=== PATIENT | female | born 1955 | race Caucasian/White ===

== ENCOUNTER 2017-12-28 11:34 | Outpatient (CLI) | payer BC, SELFPAY ==
[2017-12-28 13:19] LABS: Cholesterol 303 mg/dL (50-200); Glucose 97 mg/dL (70-100); HDL Cholesterol 58 mg/dL (40-60); LDL CHOLESTEROL 218 mg/dL (<100); TSH (W/Ref FT4) 1.98 uIU/mL (0.358-3.74); Triglyceride 97 mg/dL (30-150)
[2018-01-02 16:11] LABS: Antimullerian Hormone <0.1 ng/mL (<1.0)
== END 2017-12-28 11:54 ==
PROVIDERS: PCP Emergency Medicine; Visit Provider Nurse Practitioner Women's Health
DX: Z13.1 Encounter for screening for diabetes mellitus (principal); Z13.220 Encounter for screening for lipoid disorders; N95.1 Menopausal and female climacteric states; N95.0 Postmenopausal bleeding
CPT/HCPCS: 36415; 80061; 82947; 83721; 83001; 83520; 84443

== ENCOUNTER 2017-12-28 13:00 | Outpatient (REF) | payer BC, SELFPAY | END 2017-12-28 13:20 | LOC: LBN 13:00 | PROVIDERS: PCP Emergency Medicine; Visit Provider Nurse Practitioner Women's Health | DX: N89.8 Other specified noninflammatory disorders of vagina (principal) | CPT/HCPCS: 87480; 87510; 87660 ==

== ENCOUNTER 2018-01-15 00:53 | Outpatient (CLI) | payer BC, SELFPAY ==
--- NOTE | 2018-01-15 12:47 | DI.US_ITS ---
SYMPTOM/DIAGNOSIS: POSTMENOPAUSAL BLEEDING, N95.0, H/O UTERINE POLYP, H/O LEIOMYOMA, Z86.018 PELVIC ULTRASOUND: Comparison is made with 03/18/14. The uterus measures 7.7 cm. long by 4.0 cm. AP by 5.1 cm. transverse. The endometrial stripe measures 0.7 cm. There is a 0.6 by 0.3 by 0.8 cm., ovoid, echogenic area in the fundal endometrium. This may represent an endometrial mass. Polyp cannot be excluded. No myometrial mass is present. The right ovary measures 1.8 by 1.4 by 1.5 cm. and is unremarkable. The left ovary measures 1.8 by 1.4 by 1.7 cm. There is a 1.5 cm. by 1 by 0.9 cm. cyst on the left ovary. IMPRESSION: 0.8 cm. echogenic, round area in the fundal endometrium. This may represent an endometrial mass such as a polyp. Other masses cannot be excluded. Follow up as clinically appropriate.
== END 2018-01-15 01:13 ==
PROVIDERS: PCP Emergency Medicine; Visit Provider Nurse Practitioner Women's Health
DX: N95.0 Postmenopausal bleeding (principal); N85.8 Other specified noninflammatory disorders of uterus; Z86.018 Personal history of other benign neoplasm
CPT/HCPCS: 76830; 76856

== ENCOUNTER 2018-07-27 13:27 | Outpatient (REF) | payer BC, SELFPAY | END 2018-07-27 13:47 | LOC: LBN 13:27 | PROVIDERS: PCP Internal Medicine; Visit Provider Nurse Practitioner Women's Health | DX: R30.0 Dysuria (principal) | CPT/HCPCS: 87077; 87086; 87186 ==

== ENCOUNTER 2018-10-17 09:41 | Outpatient (CLI) | payer BC, SELFPAY ==
[2018-10-17 12:38] LABS: BUN 15 mg/dL (7-18); CREATININE 0.74 mg/dL (0.55-1.02); Chloride 106 mmol/L (98-107); Glucose 105 mg/dL (70-100); Potassium 4.3 mmol/L (3.5-5.1); Sodium 142 mmol/L (136-145)
== END 2018-10-17 10:01 ==
PROVIDERS: PCP Internal Medicine; Visit Provider Internal Medicine
DX: I10 Essential (primary) hypertension (principal)
CPT/HCPCS: 36415; 80048

== ENCOUNTER 2019-01-16 10:12 | Outpatient (CLI) | payer BC, SELFPAY ==
[2019-01-16 13:19] LABS: Calculated LDL 199 mg/dL; Cholesterol 274 mg/dL (50-200); HDL Cholesterol 60 mg/dL (40-60); Triglyceride 76 mg/dL (30-150)
[2019-01-17 17:16] LABS: Levetiracetam 10.1 mcg/mL
== END 2019-01-16 10:32 ==
PROVIDERS: PCP Internal Medicine; Visit Provider Internal Medicine
DX: E78.5 Hyperlipidemia, unspecified (principal); G40.909 Epilepsy, unspecified, not intractable, without status epilepticus; Z51.81 Encounter for therapeutic drug level monitoring
CPT/HCPCS: 36415; 80061; 80177

== ENCOUNTER 2019-11-22 11:11 | Outpatient (CLI) | payer BC, SELFPAY ==
--- NOTE | 2019-11-22 09:03 | DI.RAD_ITS ---
EXAM: XR KNEE RT 4V AP,LAT,EWELINA,PAT CLINICAL HISTORY: right knee pain. TECHNIQUE: 2D digital imaging was performed. COMPARISON: CR XR KNEE LT 4V AP,LAT,EWELINA,PAT from 11/22/2019 FINDINGS: Moderately severe degenerative changes are seen in the right knee characterized by joint space narrow ing, flattening of the articular surfaces and periarticular spurring. The findings are most marked i n the medial femoral tibial joint and the patellofemoral joint. There is a small joint effusion. Th e soft tissues are unremarkable. The bones are intact. IMPRESSION: Moderately severe degenerative changes of the right knee. DATA REPOSITORY: RADIATION DOSE DELIVERED:
--- NOTE | 2019-11-22 09:03 | DI.RAD_ITS ---
EXAM: XR KNEE LT 4V AP,LAT,EWELINA,PAT CLINICAL HISTORY: left knee pain. TECHNIQUE: 2D digital imaging was performed. COMPARISON: No exams were available for comparison FINDINGS: Marked degenerative changes are seen in the left knee. This is characterized by joint space narrowin g and periarticular spurring. Chondrocalcinosis is present. The patient has had a prior ACL repair. There is a small joint effusion. The soft tissues are unremarkable. IMPRESSION: Marked degenerative changes of the left knee. DATA REPOSITORY: RADIATION DOSE DELIVERED:
== END 2019-11-22 11:31 ==
PROVIDERS: PCP Nurse Practitioner; Referring Provider Nurse Practitioner; Visit Provider Physician Assistant
DX: M17.0 Bilateral primary osteoarthritis of knee (principal)
CPT/HCPCS: 73564

== ENCOUNTER 2019-12-10 13:38 | Outpatient (CLI) | payer BC, SELFPAY ==
--- NOTE | 2019-12-10 13:15 | DI.RAD_ITS ---
EXAM: XR STANDING ALIGNMENT CLINICAL HISTORY: preop. TECHNIQUE: 2D digital imaging was performed. COMPARISON: No exams were available for comparison FINDINGS: Mild degenerative changes are seen in the hips, right greater than left. Surgical clips are seen in the pelvis. Moderate to severe degenerative changes are seen in the knees characterized by joint spa ce narrowing and periarticular spurring. Chondrocalcinosis is present. The findings are most marked in the left knee. There are findings of a prior left ACL repair. The ankle joints are well maintai erica. No significant leg length discrepancy is seen. IMPRESSION: Moderate to severe degenerative changes of the knees bilaterally. DATA REPOSITORY: RADIATION DOSE DELIVERED:
== END 2019-12-10 13:58 ==
PROVIDERS: PCP Nurse Practitioner; Referring Provider Nurse Practitioner; Visit Provider Physician Assistant Surgical
DX: M17.0 Bilateral primary osteoarthritis of knee (principal)
CPT/HCPCS: 77073

== ENCOUNTER 2019-12-13 02:00 | Outpatient (CLI) | payer BC, SELFPAY ==
[2019-12-13 11:07] LABS: HCT 40.9 % (36.0-46.0); HGB 13.7 g/dL (11.2-15.7); MCH 31.7 pg (27.0-33.0); MCHC 33.5 % (32.0-36.0); MCV 94.7 fL (80-95); MPV 9.3 fL (8.0-11.0); Platelet Count 199 10^3/uL (130-400); RBC 4.32 10^6/uL (3.93-5.22); RDW 12.5 % (11.7-14.6); RDW-SD 43.6 fL; WBC 4.35 10^3/uL (4.4-10.8)
[2019-12-13 11:54] LABS: Anion Gap 4.8 mmol/L (3-11); BUN 15 mg/dL (7-18); CO2 30.2 mmol/L (21.0-32.0); CREATININE 0.85 mg/dL (0.55-1.02); Calcium 9.3 mg/dL (8.5-10.1); Chloride 103 mmol/L (98-107); Glucose 102 mg/dL (74-106); Potassium 4.3 mmol/L (3.5-5.1); Sodium 138 mmol/L (136-145)
[2019-12-15 02:28] LABS: COVID-19 RT-PCR Result NEGATIVE (Negative)
== END 2019-12-13 02:20 ==
PROVIDERS: PCP Nurse Practitioner; Visit Provider Student in an Organized Health Care Education/Training Program
DX: M17.11 Unilateral primary osteoarthritis, right knee (principal)
CPT/HCPCS: 36415; 80048; 85027; U0003

== ENCOUNTER 2019-12-17 06:01 | Observation (INO) | payer BC, SELFPAY ==
[2019-12-17] VITALS (11 sets, daily range): BP systolic 106–127; BP diastolic 55–82; PULSE 64–79; RESP 13–21; TEMP 36.5–36.8; O2SAT 96–100
[2019-12-17] MEDS: Lactated Ringers 1,000 ML 80 ML IV ×2 (06:31→11:50)
[2019-12-17] MEDS: Celecoxib 200 MG CAP 400 MG PO (06:32)
[2019-12-17] MEDS: Acetaminophen 500 MG TAB 1000 MG PO ×2 (06:32→11:49)
[2019-12-17] MEDS: Gabapentin 300 MG CAP PO (06:32)
[2019-12-17] MEDS: Bupivacaine 0.25% Pres-Free 30 ML VIAL ×2 (07:38→08:39)
[2019-12-17] MEDS: ceFAZolin 2 GM/50 ML BAG IVPB (08:10)
[2019-12-17] MEDS: Ketorolac 30 MG/ML VIAL (08:40)
[2019-12-17] MEDS: Normal Saline 20 ML VIAL (08:41)
[2019-12-17] MEDS: fentaNYL 100 MCG/2 ML VIAL IVP (10:50)
[2019-12-17] MEDS: ceFAZolin 1 GM/50 ML BAG IVPB (11:49)
--- NOTE | 2019-12-17 14:31 | W.PM.DS.N ---
Date of service: 12/17/19 Time of Service: 14:32 DS: Diagnosis Discharge Diagnosis (1) Degenerative joint disease of right knee: Status: Acute Discharge Plan Disposition Patient Disposition: HOME Condition: Good Discharge Details Reason For Visit: KNEE TOTAL R Admit Date/Time: 12/17/19 06:01 Admit Provider: Getachew Spear Attending Provider: Getachew Spear [facility] Hospital Course: Patient was admitted to the medical/surgical floor following the procedure. The surgery was tolerated well without any notable medical, surgical, or anesthetic complications. Mobilization began postoperatively. She was voiding spontaneously. Vitals were stable. Physical therapy worked with the patient and was cleared for discharge home. No acute medical issues. Pain was controlled on oral regimen. Home Meds and New Rx's Prescriptions: New aspirin 81 mg tablet,delayed release (DR/EC) 81 mg PO BID Qty: 60 RF: 0 acetaminophen [Tylenol Extra Strength] 500 mg tablet 500 mg PO Q6H PRNQty: 90 RF: 0 pantoprazole [Protonix] 40 mg tablet,delayed release (DR/EC) 40 mg PO DAILY Qty: 30 RF: 0 ibuprofen 600 mg tablet 600 mg PO TID Qty: 90 RF: 0 oxycodone 5 mg tablet 5 mg PO Q4H PRNQty: 18 RF: 0 Continued acyclovir 5 % cream 1 applic TP QID PRN PRN (Reason: cold sores) Qty: 5 RF: 3 levetiracetam [Keppra] 500 mg tablet 500 mg PO BID Qty: 60 RF: 0 Discontinued ibuprofen 200 mg tablet 200 mg PO QID PRNRF: 0 Discharge Instructions Additional Instructions: Dr. Spear?s Total Knee Discharge Instructions Activity: The most important activity is to walk. You should try to take short walks a few times a day. It is important that when resting you work on keeping the knee straight. Avoid putting a pillow behind the knee as this will encourage flexion. Work on range of motion exercises as provided by Physical Therapy and the preoperative booklet. - Start outpatient physical therapy within 2 weeks. - You should wear the WAQAS hose on both legs for 2 weeks. Dressing: Keep the surgical dressing (Mepilex) in place for at least one week. If you went home on the surgical day, you should remove the EFREM wrap on the second day and then apply the WAQAS hose. The dressing may get wet after 3 days but avoid soaking the dressing. If it gets wet, just lightly pat dry. Most patient prefer to cover with ClingWrap or Saran Wrap to keep the dressing dry. After the first week, the dressing may be removed and replaced with light gauze and tape or nothing. Medications: - You should take Tylenol and anti-inflammatory Ibuprofen as your primary pain control medications - You have been prescribed a stronger pain medication Oxycodone for breakthrough pain, take as needed as prescribed. - You have also been prescribed a stomach acid reduction agent Pantoprozole to help reduce stomach acid and reflux. - You will be taking Aspirin 81mg twice a day for DVT prevention unless instructed otherwise. - If you have constipation you should take Colace or Miralax (both [id number]). It takes most people 3-4 days to have a bowel movement. Follow-up: 2 weeks. You should also call physical therapy to work on scheduling outpatient therapy sessions which can begin at 2 weeks. If you have any acute concerns or questions, please do not hesitate to contact the office at [phone]. You may contact Dr. Spear with any questions after hours through the hospital at [phone] or on his cell phone at [phone]. Referrals: Getachew Spear MD [ [facility] STAFF PHYSICIAN] - Activity:: Activity as Tolerated Equipment/Supplies:: Walker Diet:: As Tolerated DS: Summary Status at Discharge Functional status at discharge: uses cane/walker Overall status at discharge: patient is progressing back to baseline Mental Status: mental status grossly normal Speech and Movement: speech and movement normal Mood: congruent mood Affect: normal affect Exam Psych Mental Status: mental status grossly normal Speech and Movement: speech and movement normal Mood: congruent mood Affect: normal affect DS: Data Vitals/I&O Vitals and I&O: Vital Signs Temperature 36.7 C 12/17/19 11:50 Temperature Source Tympanic 12/17/19 11:50 Pulse 74 12/17/19 11:50 Pulse Rhythm Regular 12/17/19 06:21 Respiratory Rate 18 12/17/19 11:50 Respiratory Effort 12/17/19 06:21 Respiratory Depth Deep 12/17/19 06:21 Respiratory Pattern Normal 12/17/19 06:21 Blood Pressure 109/68 12/17/19 11:50 Pulse Oximetry 96 12/17/19 11:50 Respiratory End-tidal CO2 36 12/17/19 10:50 Oxygen Delivery Method Room Air 12/17/19 11:50 Oxygen Flow Rate 0 12/17/19 11:50 Pain Level 0 12/17/19 11:50 Intake & Output 12/16/19 12/17/19 12/17/19 23:59 11:59 23:59 Intake Total 1022 / 1262 240 / 1262 Output Total 150 / 150 Balance 872 / 1112 240 / 1112 Weight 68.8 kg Intake: IV 1022 / 1022 Oral 240 / 240 Output: Estimated Blood Loss 150 / 150 Other: Emesis Description None PFSH Medical History AVM Degenerative joint disease of right knee Fibroadenoma of breast Right breast Hyperlipidemia Left knee DJD Melanoma in situ Neck 2010 Uterine leiomyoma Surgical History Biopsy of breast R breast fibroadenoma Brain surgery for AVM Colonoscopy - IV Sedation 07/31/12; [facility]; 2 POLYPS 08/13/13; NEG Excision, Skin Mass Melanoma insitu neck History of arthroscopy of knee (~11/2009) Right [facility] Status post repair of anterior cruciate ligament (~03/2009) Left [facility] Tubal Ligation, Laparoscopic Family History Other Diabetes Social History Smoking/Tobacco Use Status: Former Tobacco Use Drug use: Occasionally Female Reproductive History Menstrual Menopause type: natural (10/2012) History History 5 Para 4 Hx # Term Pregnancies Multiple births Hx # Pregnancies Ectopic pregnancies AB induced Hx Number of Living Children AB spontaneous
--- NOTE | 2019-12-17 17:00 | PT.INNT ---
Date of service: 12/20/19 Time of Service: 13:47 PT Notes Visit Reasons: KNEE TOTAL R Physical Therapy Inpatient Initial Evaluation Date: 12/17/2019 Referring Doctor: PAULINA Swanson PT Orders: PT CONSULT: S/P Ortho Surgery Precautions: Fall. Standard. WBAT on the R LE. Patient Profile/Admitting Diagnosis: Raysa is a 63-year-old female with degenerative joint disease of the R knee and is status post R total knee arthroplasty on postoperative day 0. PMHX: Medical History AVM Degenerative joint disease of right knee Fibroadenoma of breast Right breast Hyperlipidemia Left knee DJD Melanoma in situ Neck 2010 Uterine leiomyoma Surgical History Biopsy of breast R breast fibroadenoma Brain surgery for AVM Colonoscopy - IV Sedation 07/31/12; [facility]; 2 POLYPS 08/13/13; NEG Excision, Skin Mass Melanoma insitu neck History of arthroscopy of knee (~11/2009) Right [facility] Status post repair of anterior cruciate ligament (~03/2009) Left [facility] Tubal Ligation, Laparoscopic Social History/Home Situation: Lives alone in a private home with 2 steps to enter leading onto a porch and another 2 steps leading to the entrance door. I with all ADLs prior to surgery. Has family who lives close by. Does a lot of gardening and farm work. Equipment Owned/DME: FWW, 2 SPCs Subjective: Reports no pain in the R knee at rest but with 1-2/10 with weight bearing. Denies headache, chest pain, and dizziness throughout session. Objective: General Observation: Supine in bed. IV in R UE. Cryocuff in R knee. EFREM wraps in R knee. Mental Status: Alert and oriented x 4 Pain: 1-2/10 with weight bearing. ROM: Right Upper Extremity: Shoulder Flexion WFL. Shoulder abduction WFL. Elbow flexion WFL. Wrist flexion WFL. Opening and closing of hand WFL. Left Upper Extremity: Shoulder Flexion WFL. Shoulder abduction WFL. Elbow flexion WFL. Wrist flexion WFL. Opening and closing of hand WFL. Right Lower Extremity: Hip flexion WFL. Hip abduction WFL. Knee flexion 20 degrees to 105 degrees. knee extension -20 degrees. Ankle dorsiflexion WFL. Ankle plantarflexion WFL. Left Lower Extremity: Hip flexion WFL. Hip abduction WFL. Knee flexion WFL. Ankle dorsiflexion WFL. Ankle plantarflexion WFL. Strength: Right Upper Extremity: Shoulder flexors 5/5. Shoulder abductors 5/5. Elbow flexors 5/5. Elbow extensors 5/5. Executive Director Of Nursing strong. Left Upper Extremity: Shoulder flexors 5/5. Shoulder abductors 5/5. Elbow flexors 5/5. Elbow extensors 5/5. Executive Director Of Nursing strong. Right Lower Extremity: Hip flexors 4/5. Hip abductors 4/5. Knee flexors 3-/5. Knee extensors 3-/5. Ankle dorsiflexors 5/5. Ankle plantarflexors 5/5. Left Lower Extremity:Hip flexors 5/5. Hip abductors 5/5. Knee flexors 5/5. Knee extensors 5/5. Ankle dorsiflexors 5/5. Ankle plantarflexors 5/5. Sensation: Intact as to pain and pressure on bilateral lower extremities. Bed Mobility/Transfers: Rolling independent Supine to sit independent Sit to supine independent Sit to stand CGA Stand to sit SBA Bed to chair CGA Chair to bed CGA Gait: 200 feet + 200 feet using the FWW with SBA and step through gait pattern with decreased jony. Denies any headache, chest pain, and dizziness throughout. Balance: Static Sitting: Normal Dynamic Sitting: Normal Static Standing: Fair Dynamic Standing: Fair Special Tests: Mobility Limitations Standardized Measure [facility] 6 clicks Basic Mobility Inpatient Short Form: Raw Score: 18 CMS Score: 47% deficit Informed Consent/Education: Patient instructed in purpose of PT consult and plan of care. Assessment: Raysa requires the use of a FWW to increase independence and reduce fall risk at home. She has family who will be there to support her as he recovers at home. Patient presents with clinical signs and symptoms consistent with current/admitting diagnoses that have resulted to mobility limitations, gait instability, generalized weakness, and impairment of motor control as demonstrated by the following impairment level findings: 1. Decreased strength to R knee major muscle groups 2. Impaired sitting/standing balance 3. Impaired activity tolerance 4. Limitation of joint range of motion in R knee Impairments are contributing to the following functional limitations: 1. Inability to safely ambulate without assistive device and physical assistance 2. Increase completion time for mobility ADL performance 3. Increased fall risk 4. Inability to negotiate steps alone safely Patient is assessed as a 82187 moderate complexity based on the following: History: 63-year-old female with impairment level findings, functional limitations, and past medical history as indicated above Examination: Demonstrable impairment in strength, balance, and mobility level with underlying impairments and functional limitations as documented above Presentation:Evolving Decision Makin moderate complexity Goals: N/A. PT eval and 1 treat only. Plan of Care/Treatment Plan: N/A. PT eval and 1 treat only. DISCHARGE RECOMMENDATIONS: Home when medically cleared by orthopedic surgeon. TREATMENT CODE/TIME: 77483 x 25 minutes, 24 minutes beginning at 13:47 PM. Thank you for the opportunity to participate in the care of this patient. Sarita Turner PT, DPT, CLT [facility] [place], [place]
--- NOTE | 2019-12-17 20:13 | ROE_ITS ---
Date of service: 12/17/19 Time of Service: 10:03 Operative Note Operative Note DATE OF PROCEDURE: 12/17/19 PRE-OP DIAGNOSIS: Right Knee Osteoarthritis POST-OP DIAGNOSIS: same PROCEDURE: Right Total Knee Replacement SURGEON: Getachew Spear GEOPHYSICAL LABORATORY DIRECTOR: Shanae Tello ANESTHESIA: regional and spinal ESTIMATED BLOOD LOSS: 200 PATHOLOGY: none sent TOURNIQUET TIME: 0 COMPLICATIONS: None Patient was transported to: PACU Patient's condition: stable Implants: 1. Depuy Attune Cementless Cruciate Retaining Femoral Component, Size 6 narrow 2. Depuy Attune Cementless Rotating Platform Tibial Component, Size 4 3. Depuy Attune 6x6 CR/RP Poly 4. Depuy Attune Patellar Component, Size 35 Indications: I have seen Raysa in clinic for symptoms of knee arthritis, confirmed with radiographic findings. Raysa has exhausted nonoperative methods and was having significant limitations in daily function and desired better function and less pain. I discussed the technical details of a knee replacement. I explained the risks of the procedure to include, but not limited to, bleeding, infection, pain, stiffness, fracture, damage to nerves and vessels, damage to muscles and tendons, loosening, need for repeat procedure, blood clot and cardiopulmonary demise. Despite these risks, she elected to proceed. Findings: There was significant signs of arthritis throughout the knee involving all 3 compartments. Procedure Description: Raysa was greeted in the preoperative holding area where the correct side was identified and marked. The consent was reviewed with the patient and signed. The history and physical was updated. All questions were answered. Preoperative medications were administered: Acetaminophen 1000mg, Celebrex 400mg, and Gabapentin 300mg. An adductor canal block was then administered by the anesthesia team in the PACU. Raysa was taken back to the operating room. A spinal anesthestic was then administered. The patient was placed into the supine position on the operating room table. A nonsterile tourniquet was placed high onto the leg but only used for cementing. Posts were placed for positioning during the procedure. All bony prominences were well padded. Prophylactic antibiotics in the form of Cefazolin were administered. 1g of Tranxemic Acid was given intravenously within 30 minutes of incision. The right leg was then prepped with Chloraprep and draped in a standard fashion with impervious stockinette. A second prep with Chloraprep was performed prior to application of Iodine impregnated skin protection. A timeout to confirm correct identity, side and site, procedure, allergies, anesthesia, and medical concerns was performed. With the knee in some flexion, a midline incision was made overlying the knee. Full thickness skin flaps were raised once the extensor mechanism was encountered. These were raised medially and laterally. Any bleeding was controlled with electrocautery. Once the extensor mechanism was fully exposed, a medial parapatellar arthrotomy was performed in a flexed position. All bleeding from the arthrotomy and the geniculate arteries was coagulated. A medial subperiosteal peel was performed with electrocautery to the midcoronal plane. The fat pad was removed while keeping the patellar tendon protected. The anterior distal femur synovium was removed for later visualization. The ACL and PCL were resected and the anterior horn of the lateral meniscus was transected. The knee was then flexed with the patella everted. Large osteophytes from the tibia were removed. Large osteophytes from the femur were removed. Using a step drill, and based on preoperative templating, the femoral canal was entered. This was done with a step drill without any difficulty. The intramedullary distal femoral cut guide was inserted, set to a 6 degree valgus cut and 9mm cut thickness. The distal femoral cut guide was then held in position and pinned. With the soft tissues protected, the distal cut was performed. This was passed over a few times to ensure a planar cut. I then turned attention to the tibia. The extramedullary guide was placed onto the leg. The distal aspect was slid medial to adjust for position of center of ankle and stay in line with shaft of the tibia. Approximately 3-5 degrees of posterior slope was kept in the proximal cutting guide. The center of the guide was aligned with the PCL. The stylus was used to assess cut thickness. The medial side, most involved side, was set for a 2mm cut. This was then held in position and pinned into place with 2 additional pins and a cross pin for stability. The medial and lateral collateral ligaments were protected and the cut was performed. With this completed, it was assessed and noted to be of appropriate dimensions. The guide was removed. A spacer block was inserted and the knee was brought into extension. The 6mm spacer block provided full extension, without hyperextension and with stability of both the medial and lateral collateral ligaments was assessed. The pins from the femur and the tibia were then removed. The distal femur was then sized. The anterior stylus was placed onto the lateral ridge of the anterior femur. This indicated a size 6narrow femur. The external rotation of the guide was adjusted to 3 degrees to match the epicondylar axis, perpendicular to [place]?s line. The 4-in-1 cutting guide was the placed. The posterior medial femur cut was evaluated and appeared of good thickness. The spacer block was inserted underneath the cutting guide and stability was confirmed in 90 degrees of flexion. An bud wing was used to confirm appropriate position of the anterior cut to avoid notching. This cutting guide was ensured to be flush on the cut surface and then pinned into place with headed pins. While protecting the soft tissues, quad tendon, and collateral ligaments, the anterior and posterior cuts were performed with a saw. The central two pins were removed and the posterior and anterior chamfers were cut next. The notch-cutting guide was placed. This was pinned to lateralize the femoral component as much as possible while keeping it flush on the cut surface. This was then pinned into position. A reciprocating saw was used to make the notch cut. A rasp smoothed the cut surfaces. The medial and lateral menisci were removed. A trial femoral component was then inserted, impacted down to the cut surfaces, and the lug holes were drilled. A provisional trial tibial component was placed and the knee was brought through range of motion. There was noted to be excellent extension and flexion. There was no significant instability. The patella was tracking without thumbs. A size 6mm polyethylene component provided the best range of motion and stability with less than 2mm gapping with medial and lateral stress and full extension without significant hyperextension. The tibial cut surface was fully exposed. The tibia was then sized as a 4. The tibia had been previously marked during trialing to correspond to the center of the tibial component to help with rotation. The trial was aligned to this miguel, approximately rotated to the medial 1/3rd of the tibial tubercle. The trial was pinned into place. The tibia was prepared with a reamer and a keel punch and lug holes. The knee was then brought into extension and the patella was measured as 25mm. Using the patellar clamp and cut guide, this was resected to a flat surface with at least 13mm of thickness remaining. The size 35 patella fit the best. This was oriented and then clamped into position. The lugs were drilled. The trial components were removed. The final components were opened on the back table. The periosteal and capsular tissues, especially posteriorly, around the knee were then systematically injected with a periarticular cocktail consisting of 50cc 0.25% Marcaine, 30mg Ketorolac, 20cc of Exparal and 50cc of injectable saline. The knee was thoroughly irrigated with a pulse lavage and dried. Irrisept was also used to irrigate the tissues. On the back table, with the implants opened, the cement was mixed. One batche of high viscosity cement were prepared with vacuum assistance. After the cement was ready a small amount was placed on the cut surface of the patella and the patellar button was clamped into position and held. During this process attention was turned to the gutters of the knee and for all interfaces for any excess cement. While the cement was hardening, the cementless knee components were placed. Starting with the tibial component, the tibia was subluxed anteriorly and the lug holes of the component were lined up. The tibia was then impacted with an impactor and mallet until the tibial component was in contact with the tibia. The final polyethylene component was inserted. Then, the femoral component was inserted. The lug holes were aligned and the component was impacted into position. The knee was irrigated with Irrisept chlorhexadine solution. This was allowed to sit in the knee for 3 minutes. After the cement had finally cured, approximately 15min, the clamp was removed from the patella and the knee was taken through range of motion. The patella was tracking with a no-thumbs technique. The capsule was then reapproximated with a No. 1 Vicryl at multiple locations. The capsule was finally closed with a No. 2 Stratafix, barbed suture. The tourniquet was then released and the arthrotomy appeared watertight without significant bleeding. The second dosing of 1g TXA was started. Deep tissues w ere then reapproximated with 0 Vicryl and 2-0 Vicryl. The skin was closed with a running 3-0 Monocryl in a subcuticular fashion. This was reinforced with skin glue. A Mepilex silver dressing was applied along with a [id number] EFREM wrap. A CryoCuff was applied. Raysa was transferred to the hospital bed without difficulty an suffering no apparent complication. Raysa has a good prognosis. Physical therapy will start today and without restrictions, weight-bearing as tolerated. Aspirin 81mg BID will be used for DVT prophylaxis.
== END 2019-12-17 16:05 | disposition home or self-care (01) ==
LOC: PDS 10:13 → MS 10:14
PROVIDERS: Admitting Provider Student in an Organized Health Care Education/Training Program; PCP Nurse Practitioner; Visit Provider Student in an Organized Health Care Education/Training Program
PROC: 0SRC0J9 Replacement of Right Knee Joint with Synthetic Substitute, Cemented, Open Approach (ICD-10-PCS; CPT 27447; principal; 2019-12-17 08:30)
DX: M17.11 Unilateral primary osteoarthritis, right knee (principal); M25.561 Pain in right knee; Z96.651 Presence of right artificial knee joint; Z23 Encounter for immunization; G89.18 Other acute postprocedural pain; I69.398 Other sequelae of cerebral infarction; G40.802 Other epilepsy, not intractable, without status epilepticus
CPT/HCPCS: 27447; C1776; 76942; 90686; 97162; NC; G0378; J0690; J1100; J1885; J2405; J3010

== ENCOUNTER 2020-01-03 11:45 | Outpatient (CLI) | payer BC, SELFPAY ==
--- NOTE | 2020-01-03 10:58 | DI.RAD_ITS ---
EXAM: XR STANDING ALIGNMENT and XR knee RT 1 V CLINICAL HISTORY: 1st post op. TECHNIQUE: 2D digital imaging was performed. COMPARISON: CR XR STANDING ALIGNMENT from 12/10/2019 FINDINGS: Patient has undergone a right total knee replacement. The orthopedic hardware appears in good positi on. Mild degenerative changes are seen in the hips bilaterally. Moderately severe degenerative ortiz ges are again noted in the left knee characterized by joint space narrowing, periarticular spurring a nd chondrocalcinosis. There are findings of a prior ACL repair. The ankles are well maintained. No significant leg length discrepancy is noted. IMPRESSION: DATA REPOSITORY: RADIATION DOSE DELIVERED:
== END 2020-01-03 12:05 ==
PROVIDERS: PCP Nurse Practitioner; Referring Provider Nurse Practitioner; Visit Provider Physician Assistant
DX: Z96.651 Presence of right artificial knee joint (principal); M16.0 Bilateral primary osteoarthritis of hip; M17.12 Unilateral primary osteoarthritis, left knee
CPT/HCPCS: 73560; 77073

== ENCOUNTER 2021-03-10 12:30 | Outpatient (REF) | payer BC, SELFPAY ==
--- NOTE | 2021-03-09 10:45 | ENDOMET_PTH ---
PATIENT: Raysa Booth LOC: [facility] U#:[id number] AGE/SX: 65/F ROOM: RE03/10/[address]: Nell Jason NP : 1955 BED: DIS: 03/10/2021 SPEC #: [id number] RECD: 03/10/21 12:57 STATUS: GERRY REQ #: [id number] EMILY: 03/09/21 10:[address]: Casie STACK,Nell DEPT: Surgical Specimen RECD BY: Christie Oneal ENTERED: 03/10/21 12:57 SP TYPE: Endomet OTHR DR: Laila Martínez, PhD CAR BU[employer]DER Tissues: 1 - ENDOMETRIUM BX/TIFF Procedures: GROSS AND MICRO LEVEL 4 Comments: [id number]
--- NOTE | 2021-03-10 10:30 | PAPFT_PTH ---
PATIENT: Raysa Booth LOC: [facility] U#:[id number] AGE/SX: 65/F ROOM: RE03/10/[address]: Nell Jason NP : 1955 BED: DIS: 03/10/2021 SPEC #: [id number] RECD: 03/10/21 13:03 STATUS: GERRY REJosy #: [id number] EMILY: 03/10/21 10:[address]: Casie STACK,Nell [facility]PT[facility] Cytology RECD BY: Christie Oneal ENTERED: 03/10/21 13:03 SP TYPE: PAPFT OTHR DR: Laila Martínez, PhD PURCHASING ASSOCIATE Tissues: 1 - CX/ENDOCX FOR PAP SMEARS Procedures: PAP THIN PREP/UVM Screening HPV DNA PROBE Comments: [id number]
== END 2021-03-10 12:31 | disposition home or self-care (01) ==
LOC: LBN 12:30
PROVIDERS: PCP Nurse Practitioner; Visit Provider Nurse Practitioner Women's Health
DX: Z12.4 Encounter for screening for malignant neoplasm of cervix (principal); Z11.51 Encounter for screening for human papillomavirus (HPV); N95.0 Postmenopausal bleeding
CPT/HCPCS: 88142; 88305; 87624

== ENCOUNTER 2021-04-07 02:13 | Outpatient (CLI) | payer BC, SELFPAY ==
[2021-04-07 09:34] LABS: Hemoglobin A1C 5.7 % (<5.7)
[2021-04-07 10:06] LABS: Calculated LDL 266 mg/dL (<100); Cholesterol 356 mg/dL (<200); HDL Cholesterol 63 mg/dL (40-60); Triglyceride 138 mg/dL (<150)
== END 2021-04-07 02:14 | disposition home or self-care (01) ==
LOC: LBO 02:13
PROVIDERS: PCP Nurse Practitioner; Visit Provider Nurse Practitioner Women's Health
DX: Z13.1 Encounter for screening for diabetes mellitus (principal); Z13.6 Encounter for screening for cardiovascular disorders
CPT/HCPCS: 36415; 80061; 83036

== ENCOUNTER 2021-05-24 04:29 | Outpatient (CLI) | payer BC, SELFPAY ==
[2021-05-24 10:19] LABS: HGB 13.6 g/dL (11.2-15.7); MCH 31.1 pg (27.0-33.0); MCHC 33.2 % (32.0-36.0); MCV 93.6 fL (80-95); MPV 10.2 fL (8.0-11.0); Platelet Count 163 10^3/uL (130-400); RBC 4.38 10^6/uL (3.93-5.22); RDW 12.8 % (11.7-14.6); RDW-SD 44.2 fL; WBC 4.71 10^3/uL (4.4-10.8)
[2021-05-24 13:01] LABS: Source Nasal/Nares
[2021-05-24 16:08] LABS: COVID-19 PCR Negative (Negative)
== END 2021-05-24 04:30 | disposition home or self-care (01) ==
LOC: LBO 04:29
PROVIDERS: PCP Nurse Practitioner; Visit Provider Obstetrics & Gynecology Gynecology
DX: N95.0 Postmenopausal bleeding (principal); Z20.822 Contact with and (suspected) exposure to COVID-19; Z01.818 Encounter for other preprocedural examination; Z01.812 Encounter for preprocedural laboratory examination
CPT/HCPCS: 36415; 85027; 86850; 86900; 86901; 87635

== ENCOUNTER 2021-05-26 06:14 | Day surgery (SDC) | payer BC, SELFPAY ==
[2021-05-26 06:49] VITALS: BP 123/73; PULSE 64; RESP 16; TEMP 36.4; O2SAT 100
--- NOTE | 2021-05-26 06:58 | ANES.PREOP_ITS ---
General Info Date of Service Date Performed: 05/26/21 Height: 5 ft 3 in Weight: 68.6 kg Body Mass Index (BMI): 26.8 Surgical Procedure: Operation Date: 05/26/21 07:40 Proposed Procedure Side Surgeon p Dilation & Curettage with Hysteroscopy w/MYOSURE Maggie Perrin MD Meds Allergies and Home Medications Allergies Allergy/AdvReac Type Severity Reaction Status Date / Time phenytoin Allergy HOT Verified 05/26/21 06:38 FLASHES/RASH Home Medication Medication Instructions Recorded acyclovir 5 % topical cream 1 applic TP QID PRN PRN #5 gm 11/08/19 ibuprofen 600 mg tablet 600 mg PO TID #90 tab 12/17/19 atorvastatin 40 mg tablet 40 mg PO QPM #90 tab 04/08/21 levetiracetam 500 mg tablet 500 mg PO DAILY #90 tab 04/08/21 (Keppra) Current Visit Medications: Current Medications Generic Name Dose Route Start Last Admin Trade Name Freq PRN Reason Stop Dose Admin Ringer's Solution 1,000 mls @ 125 mls/hr 05/26/21 06:00 IV 06/17/21 23:59 INFUSION WINSTON IV Miscellaneous Supplies 1 each 05/26/21 06:00 Iv Access IV 06/17/21 23:59 DIRECTED WINSTON Sodium Chloride 0 ml 05/26/21 06:00 Normal Saline Flush 10 Ml Syr IV 06/17/21 23:59 PRN PRN Sodium Chloride 0 ml 05/26/21 06:00 Normal Saline 10 Ml Vial IJ 06/17/21 23:59 DIRECTED PRN Sterile Water 0 ml 05/26/21 06:00 Water,Injection,Sterile 10 Ml Vial IJ 06/17/21 23:59 DIRECTED PRN PFSH Active Problems Active Problems: Problem Status Onset Code History of postmenopausal bleeding Z87.42 History of postmenopausal bleeding Z87.42 Polyp of colon 07/31/12 K63.5 Uterine leiomyoma 06/29/11 D25.9 Melanoma of left side of neck C43.4 Seizure disorder G40.909 Recurrent herpes labialis B00.1 Degenerative joint disease of right knee M17.11 Left knee DJD M17.12 Hyperlipidemia E78.5 Early satiety R68.81 Medical History Medical History AVM Fibroadenoma of breast Right breast Hyperlipidemia Melanoma in situ Neck 2011 Uterine leiomyoma Surgical History Surgical History Biopsy of breast R breast fibroadenoma Brain surgery for AVM 1991-stated after this surgery she would have seizures for 5 years, but then they stopped, then she had one in September 22, 2019. involuntary movements on right hand side, never loses conciousness. currently being treated with Keppra daily. Colonoscopy - IV Sedation 07/31/12; [facility]; 2 POLYPS 08/13/13; NEG Excision, Skin Mass Melanoma insitu neck History of arthroscopy of knee (~11/2009) Right [facility] History of total right knee replacement Status post repair of anterior cruciate ligament (~03/2009) Left [facility] Tubal Ligation, Laparoscopic Tobacco Smoking/Tobacco Use Status: Former Tobacco Use Passive smoking exposure: Yes Second hand exposure: Yes Alcohol Alcohol Intake: never Substance Use Substance use: Never Substance use type: does not use Prental History History 5 Para 4 Hx # Term Pregnancies Multiple births Hx # Pregnancies Ectopic pregnancies AB induced Hx Number of Living Children AB spontaneous Vital Signs and Lab Results Vital Signs Most Recent Vital Signs in EMR: Most Recent Vital Signs Temp Pulse Resp BP Pulse Ox 36.4 C L 64 16 123/73 100 05/26/21 06:49 05/26/21 06:49 05/26/21 06:49 05/26/21 06:49 05/26/21 06:49 Lab Results Blood Type / Crossmatch: Patient ABO/Rh O Positive 05/24/21 Antibody Screen NEGATIVE 05/24/21 Complete Blood Count: White Blood Count 4.71 10^3/uL (4.4-10.8) 05/24/21 10:08 05/24/21 Red Blood Count 4.38 10^6/uL (3.93-5.22) 05/24/21 10:08 05/24/21 Hemoglobin 13.6 g/dL (11.2-15.7) 05/24/21 10:08 05/24/21 Hematocrit 41.0 % (36.0-46.0) 05/24/21 10:08 05/24/21 Platelet Count 163 10^3/uL (130-400) 05/24/21 10:08 05/24/21 Complete Metabolic Panel: No Data to Display Liver Function Panel: No Data to Display Coagulation Panel: No Data to Display Cardiac Panel: No Data to Display Arterial Blood Gas: No Data to Display Venous Blood Gas: No Data to Display Pancreas Panel: No Data to Display Thyroid Panel: No Data to Display Infectious Disease: Coronavirus (COVID-19)(PCR) Negative (Negative) 05/24/21 10:18 05/24/21 Coronavirus 2019 Source Nasal/Nares 05/24/21 10:18 05/24/21 Blood Cultures: No Data to Display Toxicology Panel: No Data to Display Anesthesia Assessment and Plan Anesthesia History Personal History: No History of Anesthesia Complications Family History: No Family History of Anesthesia Complications Exercise Tolerance Exercise Tolerance: Metabolic Equivalents>4 Cardiac & Pulmonary Exam Cardiac Exam: Normal S1/S2 Heart Sounds Pulmonary Exam: Clear Bilateral Breath Sounds Implantable Cardiac Device Does patient have a Pacemaker or an ICD?: No Airway Exam Known Difficult Airway: No Mallampati Class: 1 Mouth Opening: Normal (> 3cm) Thyromental Distance: Greater than 3 cm Neck Range of Motion: Full ROM Neck Circumference: Normal Teeth Condition: Normal Dentition ASA Classification ASA Score: ASA 2 Emergency Case?: No NPO Status NPO Status: NPO Clears >2 hours, Solids >8 hours Anesthesia Plan Resuscitation Status: Full Code Anesthesia Technique: General Anesthesia Airway Planned: Natural Airway Monitors Used: Standard Monitors
[2021-05-26 07:00] VITALS: BMI 26.8
[2021-05-26] MEDS: Lactated Ringers 1,000 ML 125 ML IV (07:05)
[2021-05-26] MEDS: Bupivacaine 0.25% Pres-Free 30 ML VIAL (07:51)
[2021-05-26 08:38] VITALS: BP 105/71; PULSE 57; RESP 16; TEMP 36; O2SAT 100
--- NOTE | 2021-05-26 09:03 | W.PM.DSUDISC ---
Discharge Plan Disposition Patient Disposition: HOME Condition: Good Discharge Details Reason For Visit: Hysteroscopy D&C with MyoSure Attending Provider: Maggie Perrin Primary Care Provider: Laila Martínez Home Meds and New Rx's Prescriptions: No Action acyclovir 5 % cream 1 applic TP QID PRN PRN (Reason: cold sores) Qty: 5 3RF Rx Instructions: Apply to cold sores up to four times daily for four days. atorvastatin 40 mg tablet 40 mg PO QPM Qty: 90 4RF levetiracetam [Keppra] 500 mg tablet 500 mg PO DAILY Qty: 90 4RF ibuprofen 600 mg tablet 600 mg PO TID Qty: 90 0RF Label Comments: 05/25 hasnt started Discharge Instructions Additional Instructions: Keep your appointment to follow-up with Dr. Perrin to discuss pathology results when available in 2 weeks Stand Alone Forms: [facility] Post Gynecology Surgery Referrals: Maggie Perrin MD [ [facility] STAFF PHYSICIAN] - 06/07/21 8:20 am Activity:: Activity as Tolerated Diet:: As Tolerated Discharge Orders Discharge Orders: Discharge Order (Routine); Ordered 05/26/21 Ordered By: Maggie Perrin
[2021-05-26 09:10] VITALS: BP 133/74; PULSE 59; RESP 16; TEMP 36; O2SAT 99
--- NOTE | 2021-05-26 14:28 | W.PM.OP ---
Date of service: 05/26/21 Time of Service: 14:28 Operative Note Operative Note DATE OF PROCEDURE: 05/26/21 PRE-OP DIAGNOSIS: postmenopausal bleeding POST-OP DIAGNOSIS: same (endometrial polyps and small submucosal fibroid) SURGEON: Maggie Perrin ASSISTING SURGEON: Mireya Leyva ANESTHESIA TYPE: General:No Airway Refer to Anesthesia Record ESTIMATED BLOOD LOSS: 5 PATHOLOGY: other (endometrial curettings) COMPLICATIONS: None Patient was transported to: same day Patient's condition: stable Implants: none Indications: Pt is a , postmenopausal female who reported one recent episode of postmenopausal uterine bleeding. Endometrial stripe on pelvic ultrasound was 7mm. She has a longstanding sebaceous cyst of the L labia majora that has recently become symptomatic. Pain with any pressure to the site. Unable to wear certain clothes secondary to rubbing on cyst. Findings: Hysteroscopy: 2 sessile polyps and solitary submucosal fibroid protruding from posterior uterine wall in proximity to the uterine fundus. Left labial sebaceous cyst is 3cm in diameter 2cm in depth with caseous content. Procedure Description: Patient was taken to the operating room where she was placed in the dorsal supine position and general anesthesia was administered without difficulty. She was then placed in the dorsal lithotomy position in [facility] in a neurologically neutral position. She was then prepped, and draped in the usual sterile fashion. Surgical timeout was performed. [place] speculum was placed into the vagina and the anterior lip of the cervix was infiltrated with 2 cc of 0.25% Marcaine without epinephrine. A single-tooth tenaculum was then used to grasp and hold the anterior lip of the cervix. A paracervical block was performed with 4 cc of quarter percent Marcaine injected into the 4 and 8:00 paracervical spaces respectively. The uterus was sounded to 8 cm. The cervix was then sequentially dilated to a maximum of 16 Allen and a hysteroscope attatched to a 6.5mm Myosure device was inserted into the uterine cavity with normal saline as the distention medium. Both polyps were on narrow stalks in the fundal portion of the uterus. No excrescences or abnormal blood vessels were noted. The Myosure device was activated and both polyps were removed at the base. The submucosal fibroid was not treated. At the completion at the procedure both of the polyp pedicles were hemostatic. The hysteroscope with the attatched Myosure device was withdrawn. All instruments were removed from the cervix. The tenaculum site was hemostatic. Attention was turned to the patient's left labia majora. The sebaceous cyst is 3cm in diameter and raised. The skin over the lesion was infiltrated with 2% Lidocaine containing a dilute solution of Epinephrine. A number 15 blade was used to make a vertical incision in the skin over the cyst capsule. The capsule was dissected from the attatched skin and subcutaneous tissue. The capsule inadvertently ruptured and cheesy yellow material extruded from the capsule. The remaining capsule was dissected from the subcutaneous tissue and the excision site was hemostatic. Both skin edges were reapproximated with skin glue. The patient was placed in the dorsal supine position, awakened and transported to recovery area in stable condition. All sponge, lap,needle counts correct x2
--- NOTE | 2021-05-26 15:25 | W.ANESPOSTOP ---
Postoperative Evaluation Date, Time and Location Date Performed: 05/26/21 Time Performed: 09:10 Patient Location: Day Surgery Unit Vital Signs Most Recent Imported Vital Signs: Most Recent Vital Signs Temp Pulse Resp BP Pulse Ox 36 C L 59 L 16 133/74 99 05/26/21 09:10 05/26/21 09:10 05/26/21 09:10 05/26/21 09:10 05/26/21 09:10 Pain Score Most Recent Pain Score: Most Recent Pain Score Pain Level 0 05/26/21 09:10 Assessment Mental Status: Awake (Alert & Oriented to Patient Baseline) Airway and Respiratory Function: Patent airway with normal (patient baseline) respiratory exam Cardiovascular Function: Hemodynamically Stable Hydration Status: Adequately Hydrated Nausea & Vomiting: No Nausea or Vomiting Pain: Pt. Denies Any Pain Peripheral Nerve Block: Patient did not receive a nerve block
== END 2021-05-26 09:42 | disposition home or self-care (01) ==
PROVIDERS: PCP Nurse Practitioner; Visit Provider Obstetrics & Gynecology Gynecology
PROC: 0UDB8ZZ Extraction of Endometrium, Via Natural or Artificial Opening Endoscopic (ICD-10-PCS; CPT 58558; principal; 2021-05-26 07:30)
DX: N95.0 Postmenopausal bleeding (principal); N84.0 Polyp of corpus uteri; D25.0 Submucous leiomyoma of uterus; N94.89 Other specified conditions associated with female genital organs and menstrual cycle
CPT/HCPCS: 58558; 11423; A4600; J1100; J1885; J2001; J2250; J2405; J2704

== ENCOUNTER 2021-09-16 02:33 | Outpatient (CLI) | payer BC, SELFPAY ==
[2021-09-16 12:50] LABS: ALT 31 U/L (14-59); AST 29 U/L (15-37); Albumin 3.5 g/dL (3.4-5.0); Alkaline Phosphatase 93 U/L (46-116); BUN 14 mg/dL (7-18); Bilirubin, Total 0.5 mg/dL (0.2-1.0); CREATININE 0.6 mg/dL (0.55-1.02); Calcium 8.8 mg/dL (8.5-10.1); Calculated LDL 176 mg/dL (<100); Cholesterol 248 mg/dL (<200); Glucose 91 mg/dL (74-106); HDL Cholesterol 60 mg/dL (40-60); Total Protein 6.6 g/dL (6.4-8.2); Triglyceride 63 mg/dL (<150)
[2021-09-16 13:13] LABS: Anion Gap 6.6 mmol/L (3-11); CO2 27.4 mmol/L (21.0-32.0); Chloride 105 mmol/L (98-107); Potassium 3.8 mmol/L (3.5-5.1); Sodium 139 mmol/L (136-145)
== END 2021-09-16 02:34 | disposition home or self-care (01) ==
PROVIDERS: PCP Nurse Practitioner; Visit Provider Nurse Practitioner
DX: E78.5 Hyperlipidemia, unspecified (principal)
CPT/HCPCS: 36415; 80053; 80061

== ENCOUNTER 2022-02-17 08:58 | Outpatient (CLI) | payer MEDICARE, SELFPAY ==
[2022-02-17 12:53] LABS: Abs Immature Grans 0.01 10^3/uL (0.0-0.06); Absolute Basophil Count 0.02 10^3/uL (0.0-0.2); Absolute Eosinophil Count 0.13 10^3/uL (0.0-0.7); Absolute Lymphocyte Count 1.44 10^3/uL (1.2-3.4); Absolute Monocyte Count 0.19 10^3/uL (0.1-0.8); Absolute Neutrophil Count 1.43 10^3/uL (1.2-6.7); Basophils % 0.6; HCT 42.8 % (36.0-46.0); HGB 13.8 g/dL (11.2-15.7); Immature Grans % 0.3; Lymphocytes % 44.7; MCH 31.1 pg (27.0-33.0); MCHC 32.2 % (32.0-36.0); MCV 96 fL (80-95); MPV 11.3 fL (8.0-11.0); Monocytes % 5.9; Neutrophils % 44.5; Platelet Count 157 10^3/uL (130-400); RBC 4.44 10^6/uL (3.93-5.22); RDW 12.1 % (11.7-14.6); RDW-SD 43.4 fL; WBC 3.22 10^3/uL (4.4-10.8)
[2022-02-17 13:19] LABS: Iron 103 ug/dL (50-170); Total Iron Binding Capacity 333 ug/dL (250-450)
[2022-02-17 13:23] LABS: Anion Gap 6.3 mmol/L (3-11); BUN 15 mg/dL (7-18); CO2 29.7 mmol/L (21.0-32.0); CREATININE 0.7 mg/dL (0.55-1.02); Calcium 9.5 mg/dL (8.5-10.1); Calculated LDL 173 mg/dL (<100); Chloride 103 mmol/L (98-107); Cholesterol 254 mg/dL (<200); Estimated GFR 95.92 (mL/min/1.73m2); Ferritin 87 ng/mL (8-252); Glucose 86 mg/dL (74-106); HDL Cholesterol 68 mg/dL (40-60); Potassium 3.6 mmol/L (3.5-5.1); Sodium 139 mmol/L (136-145); Triglyceride 67 mg/dL (<150)
[2022-02-21 11:32] LABS: Transferrin 258 mg/dL (201-352)
== END 2022-02-17 08:59 | disposition home or self-care (01) ==
LOC: LOS 08:58
PROVIDERS: PCP Nurse Practitioner Family; Referring Provider Nurse Practitioner Family; Visit Provider Nurse Practitioner Family
DX: E78.5 Hyperlipidemia, unspecified (principal); K63.5 Polyp of colon; R53.83 Other fatigue
CPT/HCPCS: 36415; 80048; 80061; 82728; 83540; 83550; 84466; 85025

== ENCOUNTER 2023-02-20 08:38 | Outpatient (CLI) | payer MEDICARE, SELFPAY ==
[2023-02-20 12:22] LABS: HCT 42.2 % (36.0-46.0); HGB 14.2 g/dL (11.2-15.7); MCH 32.7 pg (27.0-33.0); MCHC 33.6 % (32.0-36.0); MCV 97 fL (80-95); MPV 10.7 fL (8.0-11.0); Platelet Count 188 10^3/uL (130-400); RBC 4.34 10^6/uL (3.93-5.22); RDW-SD 43.7 fL; WBC 4.44 10^3/uL (4.4-10.8)
[2023-02-20 13:00] LABS: ALT 29 U/L (14-59); AST 27 U/L (15-37); Alkaline Phosphatase 90 U/L (46-116); Anion Gap 8.4 mmol/L (3-11); BUN 9 mg/dL (7-18); Bilirubin, Total 0.6 mg/dL (0.2-1.0); CO2 28.6 mmol/L (21.0-32.0); CREATININE 0.8 mg/dL (0.55-1.02); Calcium 9.8 mg/dL (8.5-10.1); Calculated LDL 153 mg/dL (<100); Chloride 105 mmol/L (98-107); Cholesterol 242 mg/dL (<200); Estimated GFR 81.21 (mL/min/1.73m2); Glucose 98 mg/dL (74-106); HDL Cholesterol 78 mg/dL (40-60); Potassium 4.2 mmol/L (3.5-5.1); Sodium 142 mmol/L (136-145); Total Protein 7.4 g/dL (6.4-8.2); Triglyceride 56 mg/dL (<150)
== END 2023-02-20 08:39 | disposition home or self-care (01) ==
LOC: LOS 08:39
PROVIDERS: PCP Nurse Practitioner Family; Referring Provider Nurse Practitioner Family; Visit Provider Nurse Practitioner Family
DX: R53.83 Other fatigue (principal); E78.5 Hyperlipidemia, unspecified
CPT/HCPCS: 36415; 80053; 80061; 85027; 84443

== ENCOUNTER 2025-02-24 01:33 | Outpatient (CLI) | payer MEDICARE, SELFPAY ==
[2025-02-25 10:46] LABS: Lyme Ab w Rflx to Lyme Confirm Negative (Negative)
[2025-02-27 14:36] LABS: B. miyamotoi PCR Negative (Negative); Babesia divergens/MO-1 Negative (Negative); Ehrlichia muris eauclairensis Negative (Negative)
== END 2025-02-24 01:34 | disposition home or self-care (01) ==
LOC: LOS 01:33
PROVIDERS: PCP Nurse Practitioner Family; Visit Provider Nurse Practitioner Family
DX: T14.90XA Injury, unspecified, initial encounter (principal); W57.XXXA Bitten or stung by nonvenomous insect and other nonvenomous arthropods, initial encounter
CPT/HCPCS: 36415; 87798; 86618